=== PATIENT | female | born 1965 | race Caucasian/White ===

== ENCOUNTER → 2017-05-28 | Outpatient (CLI) | payer OTHER ==
[~2017-05-28] MED LIST: ARIMIDEX1 MG PO; ASPIRIN 325MG325 MG PO; CALCIUM 600 +1 EA11 PO; CALCIUM600 MG PO; TAPAZOLE10 MG PO; TENORMIN 50 MG50 MG PO
== END ==
LOC: MAMO 05-06 14:10
DX: Z12.31 Encounter for screening mammogram for malignant neoplasm of breast (principal); Z80.3 Family history of malignant neoplasm of breast; Z85.3 Personal history of malignant neoplasm of breast
CPT/HCPCS: G0202

== ENCOUNTER → 2020-12-06 | Outpatient (CLI) | payer OTHER | LOC: MAMO 11:30 | DX: Z12.31 Encounter for screening mammogram for malignant neoplasm of breast (principal); Z78.0 Asymptomatic menopausal state; Z90.11 Acquired absence of right breast and nipple | CPT/HCPCS: 77063; 77067 ==